=== PATIENT | male | born 1960 | race Caucasian/White ===

== ENCOUNTER 2022-05-12 15:32 | Emergency (ER) | payer MEDICARE, SELFPAY ==
[2022-05-12 15:50] VITALS: BP 147/77; PULSE 66; RESP 18; TEMP 36.9; O2SAT 100
--- NOTE | 2022-05-12 15:59 | ED.SKABFB ---
HPI - Skin/Abscess/Foreign Bdy General Chief complaint: Wound/Laceration Stated complaint: Laceration on right arm Time Seen by Provider: 05/12/22 15:59 Source: patient Mode of arrival: ambulatory Limitations: no limitations History of Present Illness HPI narrative: 62 yo M presents with skin tear to R forearm. Scrapped R forearm against a file cabinet. Cleaned at home and bandaid applied. Unsure if they need tetanus. Waiting for PCP for call back with records. All systems reviewed and negative except as noted above. Related Data Home Medications Medication Instructions Recorded Confirmed clonazepam 0.5 mg tablet 0.5 mg PO HS 05/12/22 05/12/22 pramipexole 1 mg tablet 1 mg PO BID 05/12/22 05/12/22 primidone 250 mg tablet 125 mg PO HS 05/12/22 05/12/22 zonisamide 100 mg capsule 200 mg PO Q12H 05/12/22 05/12/22 Allergies Allergy/AdvReac Type Severity Reaction Status Date / Time No Known Allergies Allergy Verified 05/12/22 16:03 Review of Systems Review of Systems: CONSTITUTIONAL: Denies fever, chills, or sweats. EYES: Denies visual changes, redness, or discharge. ENT: Denies rhinorrhea, congestion, sore throat, or otalgia. CARDIOVASCULAR: Denies chest pain, palpitations, or edema. RESPIRATORY: Denies cough or dyspnea. GASTROINTESTINAL: Denies abdominal pain, nausea, vomiting, or diarrhea. GENITOURINARY: Denies dysuria or hematuria. SKIN: Denies rash or itching. Skin tear to right forearm. MUSCULOSKELETAL: Denies back pain, joint pain, or myalgia. NEUROLOGIC: Denies headache, numbness, or weakness. PSYCHIATRIC: Denies anxiety or depression. All other systems reviewed are negative, except as documented in HPI. PMFSH Comments At time of signature, agree with nursing past medical, surgical, social and family history. There is no relevant family history pertinent to the presenting complaint. Exam Narrative: GENERAL: This is a well-nourished, well-developed patient, in no apparent distress. HEAD: normocephalic, atraumatic. EYES: PERRL. Sclera clear/white. Vision is grossly intact. EARS: External ears normal NOSE: External nose normal NECK: Neck supple, non-tender without lymphadenopathy, masses or thyromegaly. CARDIOVASCULAR: Regular rate and rhythm without murmurs, gallops, or rubs. RESPIRATORY: Clear to auscultation. Breath sounds equal bilaterally. No wheezes, rales, or rhonchi. SKIN: warm, Dry, no suspicious lesions or rash, good texture and turgor. approx. 6cm x 0.5cm skin tear to R forearm. bleeding controlled. skin tear edges can be realigned to the normal anatomical position. NEURO: awake, alert, and oriented to person, place and time. There were no obvious focal neurologic abnormalities. EXTREMITIES: No joint tenderness, effusion, or edema noted. Course Course Level of Care: Express Care Visit Vital Signs Vital signs: Vital Signs Temperature 36.9 C 05/12/22 15:50 Pulse Rate 66 05/12/22 15:50 Respiratory Rate 18 05/12/22 15:50 Blood Pressure 147/77 H 05/12/22 15:50 Pulse Oximetry 100 05/12/22 15:50 Oxygen Delivery Room Air 05/12/22 15:50 Temperature 36.9 C 05/12/22 15:50 Pulse Rate 66 05/12/22 15:50 Respiratory Rate 18 05/12/22 15:50 Blood Pressure 147/77 H 05/12/22 15:50 Pulse Oximetry 100 05/12/22 15:50 Oxygen Delivery Room Air 05/12/22 15:50 Reviewed MDM - Skin/Abscess/Foreign Bdy MDM Narrative Medical decision making narrative: Patient is aware of diagnosis, understands and agrees to treatment plan. Anticipatory guidance given. Patient agrees to follow-up as directed and is aware of reasons to seek care at the emergency department. Portions of this record may have been created with voice recognition software Discharge Plan Discharge Clinical Impression: Skin tear of right forearm without complication Patient Disposition: Home, Self-Care Condition: Stable Instructions: Antibiotic Form, Skin Tear (ED) Additional Instructions:
[2022-05-12] MEDS: TETANUS,DIPHTHERIA,AC PERTUSSIS ADULT (0.5 ML) BOOSTRIX IM (16:24)
== END 2022-05-12 16:33 | disposition home or self-care (01) ==
PROVIDERS: Emergency Provider Nurse Practitioner Family
DX: S51.811A Laceration without foreign body of right forearm, initial encounter (principal); W22.8XXA Striking against or struck by other objects, initial encounter; Z23 Encounter for immunization; G40.909 Epilepsy, unspecified, not intractable, without status epilepticus; G20 Parkinson's disease; Z96.82 Presence of neurostimulator
CPT/HCPCS: 90471; 90715; 99202; G0463

== ENCOUNTER 2025-04-25 09:00 | Outpatient (RCR) | payer MEDICARE, SELFPAY ==
--- NOTE | 2025-03-21 09:07 | OPREHPOC ---
Outpatient Therapy Plan of Care This is a Multidisciplinary Plan of Care that may contain components documented by all disciplines (PT, OT, and ST.) PT Problem 1 PT Problem #1 Knowledge Deficit PT Goal 1 Goal / Goal Update *independent with HEP Target Visit 8 PT Problem 2 PT Problem #2 Impaired Strength PT Goal 1 Goal / Goal Update * increase R and L LE strength, to gross 4 to 4+/5 Target Visit 8 PT Problem 3 PT Problem #3 Impaired Functional Mobility PT Goal 1 Goal / Goal Update 1* pt ambulate 2 minute walking test distance of 400' 2* pt ambulate with knee extension R and L with stance phase 3* on 4 steps, with one hand railing, alternate step pattern 4* sit/stand without use of UE x 5 reps 5* 5 reps sit/stand time of 19 seconds Target Visit 8
--- NOTE | 2025-03-21 09:07 | PTOPEVAL1 ---
Assessment and note entered by Sadaf Monterroso PT Evaluation Information Assessment Status Evaluation ICD-10 Condition Codes (PT) Repeated falls R29.6,Difficulty Walking R26.2, Abnormalities of gait and mobility R26.9,Weakness R53.1 Onset Dec 2024 Subjective Information gradually getting weaker in legs and problems standing; have falls to the L side when in the shower and catch myself on the wall of the shower; tend to go to the L side and problems with turning; no dizziness- lose balance; have not fallen to the ground catch myself on wall or furniture in shower have grab bar, hand held shower and seat . 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 He reports gradual weakness of legs, has not had falls, but loses his balance and catches himself. More difficulty on stairs and being up and walking. Brother present and supportive to pt--he lives with him. He does not do any leg exercises during the day, but tries to stay active and moving as much as he can; volunteers and fatigued at 5 hours of activity. 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 Reports L leg pain- whole leg and with knee motions. Discussed with pt further assessment of knee pain with primary or ortho dr. 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 Skilled PT services are indicated for therapeutic exercises and activities to increase LE strength, gait and balance skills, to improve mobility and safety, with education for HEP and safety training . Plan of Care Interventions Neuro Re-education,Patient/Caregiver Education, Therapeutic Activities,Therapeutic Exercise PT Services Indicated Yes Treatment Frequency and 1-2x/wk for 8 visits Duration These treatments will address the objective and functional deficits as defined above. The patient will be advanced safely and appropriately in order for the patient to progress towards his/her prior level of function. Additional exercises will be introduced and as well as a comprehensive home exercise program upon discharge, if needed, ?to ensure carryover of functional gains achieved in the clinic. This treatment plan has been reviewed and agreement upon by the patient.
--- NOTE | 2025-03-21 11:46 | PCPTNOTE ---
pt was 10 minutes late for today's eval appt.
--- NOTE | 2025-04-21 08:05 | PCPTNOTE ---
Cancelled pt to call and reschedule per front end developer designer. AKS
--- NOTE | 2025-04-25 10:01 | OPREHPOC ---
Outpatient Therapy Plan of Care This is a Multidisciplinary Plan of Care that may contain components documented by all disciplines (PT, OT, and ST.) PT Problem 1 PT Problem #1 Knowledge Deficit PT Goal 1 Goal / Goal Update *independent with HEP 04-25-25 d/c goal met Target Visit 8 Progress Met PT Problem 2 PT Problem #2 Impaired Strength PT Goal 1 Goal / Goal Update * increase R and L LE strength, to gross 4 to 4+/5 04-25-25 d/c goal met Target Visit 8 Progress Met PT Problem 3 PT Problem #3 Impaired Functional Mobility PT Goal 1 Goal / Goal Update 1* pt ambulate 2 minute walking test distance of 400' 2* pt ambulate with knee extension R and L with stance phase 3* on 4 steps, with one hand railing, alternate step pattern 4* sit/stand without use of UE x 5 reps 5* 5 reps sit/stand time of 19 seconds 04-25-25 d/c goals 2,4 met; improved with #1 to 340'; #3 with single step pattern; #5 21 seconds Target Visit 8 Progress Partially Met
--- NOTE | 2025-04-25 10:01 | PTOPDC ---
Assessment and note entered by Sadaf Monterroso, PT Assessment Status Discharge ICD-10 Condition Codes (PT) Repeated falls R29.6,Difficulty Walking R26.2, Abnormalities of gait and mobility R26.9,Weakness R53.1 Onset Dec 2024 Subjective Information feel like I am stronger, but L leg is still weak, cannot do as many reps with the exercises; use the cane all of the time- was not using all the time to start with; have not had a complete fall, but have had loss of balance and can catch self with cane or on the wall; problems with standing in shower and turning to rinse off- have tub seat and hand held shower head, but a habit to turn with rinsing off; feel comfortable on the stairs, as long as not carrying anything; have been walking on his drive way, but not down the street or the block; Reported Pain Level Pain Score 0: Self Report Additional Pain Score Comments pain up to 8/10 in L quad area-- just happens, not know why have swelling in both legs, L more than R; Assessment PT Clinical Summary Tyrone has received 7 PT sessions. Compared to the initial evaluation: increase LE strength, but L continues to be weaker than the R LE; 5 reps sit/stand from 29 seconds with 1 UE use to 21 seconds without UE use; 2 minute walking test distance from 320 to 340'; improved gait pattern with the cane, no longer limps on L LE-- due to pain in leg and weakness; on stairs, uses the cane and is safe; has not had any falls since starting PT; education for HEP and safety with mobility. The goals were partially met. Discharge PT services. Continue HEP and increase walking as tolerated. Plan of Care PT Services Indicated No
== END 2025-04-25 10:20 | disposition home or self-care (01) ==
LOC: ANHPT 09:00
DX: Z91.81 History of falling (principal)
CPT/HCPCS: 97110; 97116; 97161; 97530